=== PATIENT | female | born 1930 | race Caucasian/White ===

== ENCOUNTER 2016-07-22 17:44 | Inpatient (IN) | payer MEDICARE, BC ==
[2016-07-22] MEDS ORDERED: ASPIRIN 81 MG CHEW PO STA (18:18)
[2016-07-22] MEDS ORDERED: HEPARIN SODIUM,PORCINE 5,000 UNIT/ML 1 ML VIAL IV STA (18:18)
[2016-07-22] MEDS ORDERED: NITROGLYCERIN OINT 1 INCH/GM PACKET TOPICAL STA (18:20)
[2016-07-22] MEDS ORDERED: FUROSEMIDE 10 MG/ML 4 ML VIAL IV STA (18:20)
[2016-07-22] MEDS ORDERED: DILTIAZEM 125 MG in SODIUM CHLORIDE 0.9% 100 ML IV STA (18:27)
--- NOTE | 2016-07-22 18:29 | ED ---
Arrhythmia/Palpitations HPI - General Chief Complaint: Arrhythmia/Palpitations Stated Complaint: AFIB, SOB Time Seen by Provider: 07/22/16 18:16 Source: patient, RN notes reviewed Mode of arrival: wheelchair Limitations: no limitations - History of Present Illness Initial Comments: This is a 85-year-old female with a history of atrial fibrillation in the past who is had ablation and conversion who states she had the onset 4 days ago of some palpitations and exertional dyspnea and fatigue additionally she's had some indigestion-like discomfort and chest heaviness. She was seen at her certified alcohol counselor today and found to be in atrial fibrillation. She does also states she's had swelling to both lower extremities which is unusual for her. She does states his heaviness is about 8/10 in severity. She denies any fevers chills sweats no nausea vomiting or other symptoms. MD Complaint: rapid heart beat, "heart racing", palpitations, irregular heart beat - Related Data Home Medications Medication Instructions Recorded Confirmed Apixaban [Eliquis] 2.5 mg PO BID 02/24/16 07/22/16 Furosemide [Lasix] 40 mg PO DAILY 02/24/16 07/22/16 Magnesium Oxide [Mag-Ox] 250 mg PO DAILY 02/24/16 07/22/16 Metoprolol Tartrate [Lopressor] 25 mg PO BID 02/24/16 07/22/16 Omeprazole 20 mg PO DAILY PRN 02/24/16 07/22/16 Spironolactone [Aldactone] 12.5 mg PO DAILY 02/24/16 07/22/16 Allergies Allergy/AdvReac Type Severity Reaction Status Date / Time latex Allergy TURNS RED, Verified 07/22/16 19:27 OCC HIVES Sulfa (Sulfonamide Allergy Rash/Hives Verified 07/22/16 19:27 Antibiotics) Review of Systems ROS Statement: Those systems with pertinent positive or pertinent negative responses have been documented in the HPI. ROS Other: All systems not noted in ROS Statement are negative. Past Medical History Past Medical History: Atrial Fibrillation, Heart Failure, Rheumatoid Arthritis ( RA) Additional Past Medical History / Comment(s): osteoporosis History of Any Multi-Drug Resistant Organisms: None Reported Past Surgical History: Hysterectomy, Orthopedic Surgery Additional Past Surgical History / Comment(s): shoulder knee cardioversion Past Psychological History: No Psychological Hx Reported Smoking Status: Never smoker Past Alcohol Use History: None Reported Past Drug Use History: None Reported General Exam - General Exam Comments Initial Comments: This is a well-developed well-nourished awake alert oriented 3 female Limitations: no limitations General appearance: alert, in no apparent distress Head exam: Present: atraumatic, normocephalic, normal inspection Eye exam: Present: normal appearance, PERRL, EOMI. Absent: scleral icterus, conjunctival injection, periorbital swelling ENT exam: Present: normal exam, mucous membranes moist Neck exam: Present: normal inspection. Absent: tenderness, meningismus, lymphadenopathy Respiratory exam: Present: rales, decreased breath sounds. Absent: respiratory distress, wheezes, rhonchi, stridor Cardiovascular Exam: Present: tachycardia, irregular rhythm. Absent: systolic murmur, diastolic murmur, rubs, gallop, clicks GI/Abdominal exam: Present: soft, normal bowel sounds. Absent: distended, tenderness, guarding, rebound, rigid Extremities exam: Present: full ROM, normal capillary refill, pedal edema ( Pedal edema to the lower extremities up to the knee.). Absent: tenderness, joint swelling, calf tenderness Back exam: Present: normal inspection Neurological exam: Present: alert, oriented X3, CN II-XII intact Psychiatric exam: Present: normal affect, normal mood Skin exam: Present: warm, dry, intact, normal color. Absent: rash Course Vital Signs 07/22/16 07/22/16 17:45 19:07 Temperature 96.7 F L Pulse Rate 144 H 128 H Respiratory 18 18 Rate Blood Pressure 128/84 127/85 O2 Sat by Pulse 98 96 Oximetry - Reevaluation(s) Reevaluation #1: 07/22/16 21:30 Patient does feel somewhat better. EKG Findings - EKG Results: EKG: interpreted by ERMD (Atrial fibrillation with a rapid ventricular response rate 140 QRS of 88 QT/QTC of 320/48 nonspecific anterior changes.) Medical Decision Making - Medical Decision Making Patient's heart rate did respond she is still in atrial fibrillation with rate has improved down to posterior -100 no further chest pains this time she will be admitted with cardiology consultation I did discuss this with the hospitalist. - Lab Data Result diagrams: 07/22/16 18:32 07/22/16 18:32 Lab Results 05/12/2907/22/16 07/22/16 Range/Units 18:32 18:32 18:32 WBC 5.8 (3.8-10.6) k/uL RBC 3.55 L (3.80-5.40) m/uL Hgb 10.5 L (11.4-16.0) gm/dL Hct 32.7 L (34.0-46.0) % MCV 92.1 (80.0-100.0) fL MCH 29.6 (25.0-35.0) pg MCHC 32.2 (31.0-37.0) g/dL RDW 19.4 H (11.5-15.5) % Plt Count 192 (150-450) k/uL Neutrophils % 67 % Lymphocytes % 24 % Monocytes % 6 % Eosinophils % 0 % Basophils % 0 % Neutrophils # 3.9 (1.3-7.7) k/uL Lymphocytes # 1.4 (1.0-4.8) k/uL Monocytes # 0.4 (0-1.0) k/uL Eosinophils # 0.0 (0-0.7) k/uL Basophils # 0.0 (0-0.2) k/uL Hypochromasia Moderate Poikilocytosis Slight Anisocytosis Slight PT (9.0-12.0) sec INR (<1.1) APTT (22.0-30.0) sec Sodium 140 (137-145) mmol/L Potassium 4.3 (3.5-5.1) mmol/L Chloride 105 (98-107) mmol/L Carbon Dioxide 20 L (22-30) mmol/L Anion Gap 15 mmol/L BUN 22 H (7-17) mg/dL Creatinine 1.05 H (0.52-1.04) mg/dL Est GFR (MDRD) Af Amer >60 (>60 ml/min/1.73 sqM) Est GFR (MDRD) Non-Af 50 (>60 ml/min/1.73 sqM) Glucose 110 H (74-99) mg/dL Calcium 9.2 (8.4-10.2) mg/dL Magnesium 2.4 H (1.6-2.3) mg/dL Total Bilirubin 2.2 H (0.2-1.3) mg/dL AST 46 H (14-36) U/L ALT 44 (9-52) U/L Alkaline Phosphatase 75 (38-126) U/L Total Creatine Kinase 41 (30-135) U/L CK-MB (CK-2) 0.7 (0.0-2.4) ng/mL CK-MB (CK-2) Rel Index 1.7 Troponin I <0.012 (0.000-0.034) ng/mL Total Protein 7.3 (6.3-8.2) g/dL Albumin 4.1 (3.5-5.0) g/dL 07/22/16 Range/Units 18:32 WBC (3.8-10.6) k/uL RBC (3.80-5.40) m/uL Hgb (11.4-16.0) gm/dL Hct (34.0-46.0) % MCV (80.0-100.0) fL MCH (25.0-35.0) pg MCHC (31.0-37.0) g/dL RDW (11.5-15.5) % Plt Count (150-450) k/uL Neutrophils % % Lymphocytes % % Monocytes % % Eosinophils % % Basophils % % Neutrophils # (1.3-7.7) k/uL Lymphocytes # (1.0-4.8) k/uL Monocytes # (0-1.0) k/uL Eosinophils # (0-0.7) k/uL Basophils # (0-0.2) k/uL Hypochromasia Poikilocytosis Anisocytosis PT 12.0 (9.0-12.0) sec INR 1.2 (<1.1) APTT 23.5 (22.0-30.0) sec Sodium (137-145) mmol/L Potassium (3.5-5.1) mmol/L Chloride (98-107) mmol/L Carbon Dioxide (22-30) mmol/L Anion Gap mmol/L BUN (7-17) mg/dL Creatinine (0.52-1.04) mg/dL Est GFR (MDRD) Af Amer (>60 ml/min/1.73 sqM) Est GFR (MDRD) Non-Af (>60 ml/min/1.73 sqM) Glucose (74-99) mg/dL Calcium (8.4-10.2) mg/dL Magnesium (1.6-2.3) mg/dL Total Bilirubin (0.2-1.3) mg/dL AST (14-36) U/L ALT (9-52) U/L Alkaline Phosphatase (38-126) U/L Total Creatine Kinase (30-135) U/L CK-MB (CK-2) (0.0-2.4) ng/mL CK-MB (CK-2) Rel Index Troponin I (0.000-0.034) ng/mL Total Protein (6.3-8.2) g/dL Albumin (3.5-5.0) g/dL - Radiology Data Radiology results: report reviewed (I did review the imaging and report no definite evidence of pleural fluid there is cardiomegaly mild pulmonary fibrotic changes no major change from her previous exam.), image reviewed Critical Care Time Critical Care Time: Yes Critical Care Time: 33 minutes of critical care time which includes initial presentation with history physical labs x-rays reevaluation the patient response to therapy. Evaluation of old charting. Discussion with the patient family regarding the findings. Discussion with the hospitalist admission orders and documentation of the above. Disposition Clinical Impression: Rapid atrial fibrillation, Peripheral edema, Renal insufficiency Disposition: ADMITTED IP TO THIS [facility] Condition: Stable Referrals: Jeff Evans MD [Primary Care Provider] - 1-2 days
[2016-07-22] MEDS ORDERED: HEPARIN SODIUM,PORCINE/D5W PMX 25,000 UNIT in DEXTROSE/WATER 1 500ML.BAG IV SCH (18:30)
[2016-07-22 18:42] LABS: Anisocytosis Slight; Basophils % (A) 0 %; CH 29.6; CHCM 32.3; Eosinophils % (A) 0 %; HCT 32.7 % (34.0-46.0); HDW 3.93; HGB 10.5 gm/dL (11.4-16.0); Hypochromasia Moderate; Luc # (Auto) 0.15; Luc % (Auto) 3; Lymphocytes # (A) 1.4 k/uL (1.0-4.8); Lymphocytes % (A) 24 %; MCH 29.6 pg (25.0-35.0); MCHC 32.2 g/dL (31.0-37.0); MCV 92.1 fL (80.0-100.0); Mean Platelet Volume 7.9; Monocytes # (A) 0.4 k/uL (0-1.0); Monocytes % (A) 6 %; Neutrophils # (A) 3.9 k/uL (1.3-7.7); Neutrophils % (A) 67 %; Poikilocytosis Slight; RBC 3.55 m/uL (3.80-5.40); RDW 19.4 % (11.5-15.5); WBC 5.8 k/uL (3.8-10.6); WBC (Perox) 6.03
[2016-07-22 18:58] LABS: INR 1.2 (<1.1); Partial Thromboplastin Time 23.5 sec (22.0-30.0)
[2016-07-22 19:01] LABS: ALT 44 U/L (9-52); AST 46 U/L (14-36); Alkaline Phosphatase 75 U/L (38-126); Anion Gap 15 mmol/L; Blood Urea Nitrogen 22 mg/dL (7-17); Calcium 9.2 mg/dL (8.4-10.2); Carbon Dioxide 20 mmol/L (22-30); Chloride 105 mmol/L (98-107); Glucose 110 mg/dL (74-99); Magnesium 2.4 mg/dL (1.6-2.3); Non-African American GFR(MDRD) 50 (>60 ml/min/1.73 sqM); Potassium 4.3 mmol/L (3.5-5.1); Sodium 140 mmol/L (137-145); Total Bilirubin 2.2 mg/dL (0.2-1.3); Total Protein 7.3 g/dL (6.3-8.2)
[2016-07-22 19:03] LABS: Creatine Kinase 41 U/L (30-135)
[2016-07-22 19:17] LABS: Creatine Kinase MB 0.7 ng/mL (0.0-2.4); Troponin I <0.012 ng/mL (0.000-0.034)
--- NOTE | 2016-07-22 19:35 | XR ---
EXAMINATION TYPE: XR chest 2V DATE OF EXAM: 07/22/2016 7:18 PM COMPARISON: 07/23/2012 HISTORY: Dysrhythmia TECHNIQUE: Frontal and lateral views of the chest are obtained. FINDINGS: Heart is enlarged. There is no gross heart failure. Lungs are clear of consolidation. Ther e is some coarsening of interstitial markings. There are chest leads. IMPRESSION: Cardiomegaly. Mild pulmonary fibrotic changes. No significant change compared to old exa m.
[2016-07-22] MEDS ORDERED: NALOXONE 0.4 MG/ML 1 ML VIAL IV PRN (21:35)
[2016-07-22] MEDS ORDERED: PANTOPRAZOLE 40 MG TABLET PO PRN (21:45)
[2016-07-22] MEDS ORDERED: TEMAZEPAM 15 MG CAP PO PRN (23:17)
[2016-07-22] MEDS ORDERED: ALPRAZolam 0.25 MG TAB PO PRN (23:17)
[2016-07-22] MEDS ORDERED: HYDROcodone/APAP 5-325MG 1 EACH TAB PO PRN (23:17)
[2016-07-23 01:22] VITALS: BMI 25.5
[2016-07-23] MEDS: NITROGLYCERIN OINT 1 INCH/GM PACKET TOPICAL SCH ×5 (02:51→17:21)
[2016-07-23] MEDS: SODIUM CHLORIDE 0.9% 1,000 ML IV SCH ×2 (05:52→22:02)
[2016-07-23 05:58] LABS: Anisocytosis Slight; Basophils % (A) 0 %; CH 28.7; CHCM 31.4; Eosinophils % (A) 0 %; HCT 28.6 % (34.0-46.0); HDW 3.75; Hypochromasia Moderate; Luc # (Auto) 0.21; Luc % (Auto) 4; Lymphocytes # (A) 1.8 k/uL (1.0-4.8); Lymphocytes % (A) 35 %; MCH 28.5 pg (25.0-35.0); MCHC 31.1 g/dL (31.0-37.0); MCV 91.6 fL (80.0-100.0); Mean Platelet Volume 7.5; Monocytes # (A) 0.7 k/uL (0-1.0); Monocytes % (A) 13 %; Neutrophils # (A) 2.4 k/uL (1.3-7.7); Neutrophils % (A) 48 %; Poikilocytosis Slight; RBC 3.13 m/uL (3.80-5.40); RDW 19.3 % (11.5-15.5); WBC 5.1 k/uL (3.8-10.6); WBC (Perox) 5.42
[2016-07-23 06:07] LABS: Anion Gap 9 mmol/L; Blood Urea Nitrogen 21 mg/dL (7-17); Calcium 8.4 mg/dL (8.4-10.2); Carbon Dioxide 22 mmol/L (22-30); Chloride 109 mmol/L (98-107); Glucose 83 mg/dL (74-99); Non-African American GFR(MDRD) 59 (>60 ml/min/1.73 sqM); Potassium 3.6 mmol/L (3.5-5.1); Sodium 140 mmol/L (137-145)
[2016-07-23 06:11] LABS: HGB 8.9 gm/dL (11.4-16.0)
--- NOTE | 2016-07-23 08:34 | HP ---
DATE OF ADMISSION: CHIEF COMPLAINT: Atrial fibrillation. HISTORY OF PRESENT ILLNESS: This 85-year-old woman with a past medical history of atrial fibrillation, CHF, rheumatoid arthritis, history of osteoporosis, hysterectomy being followed by Dr. Jeff Evans in the outpatient setting has apparently had a right shoulder arthroplasty in February by Dr. Shin. The patient today had an appointment with a radial drill press operator for plastic and the patient's heart rate was high and recommended admission at [facility]. The patient's barber tool sharpener is Dr. Harjit Rodas. Patient came to [facility] and admitted for further evaluation and treatment. The patient was found to have atrial fibrillation with fast ventricular rate on admission at 144. Cardizem was initiated and the heart rate is being closely monitored as this time. There is no history of any fever, rigors, chills. No history of headache, loss of consciousness or seizures at this time. The patient also complaining of generalized bloating and some shortness of breath also. PAST MEDICAL HISTORY: History of atrial fibrillation, history of CHF, history of rheumatoid arthritis, osteoporosis. Medications prior to admission include: 1. Aldactone 12.5 mg daily. 2. Omeprazole 20 mg daily p.r.n. 3. Lopressor 25 mg b.i.d. 4. Magnesium oxide 250 mg p.o. daily. 5. Lasix 40 mg p.o. daily. 6. Eliquis 2.5 mg b.i.d. Allergies are LATEX, SULFA. FAMILY HISTORY: No history of heart disease or strokes in the family. SOCIAL HISTORY: No history of smoking. Occasional alcohol intake. REVIEW OF SYSTEMS: ENT: Diminished hearing and diminished vision. Patient wears hearing aids. CARDIOVASCULAR: As mentioned earlier. RESPIRATORY: As mentioned earlier. GI: No nausea. : No dysuria. NERVOUS SYSTEM: No numbness or weakness. ALLERGY/IMMUNOLOGY: No asthma or hayfever. MUSCULOSKELETAL: As mentioned earlier. HEMATOLOGY/ONCOLOGY: No history of anemia. ENDOCRINE: No history of diabetes mellitus or hypothyroidism. CONSTITUTIONAL: As mentioned earlier. DERMATOLOGY: Negative. RHEUMATOLOGY: As mentioned earlier. PSYCHIATRY: As mentioned earlier. PHYSICAL EXAMINATION: The patient is alert and oriented x3. Pulse 144, blood pressure 128/84, respirations 18. Pulse is irregularly, irregular. Temperature is 96.7. Pulse ox is 98% on room air. HEENT: Conjunctivae normal. Oral mucosa moist. NECK: jugular venous distention. CARDIOVASCULAR: S1 and S2, irregular and tachycardiac. Also an ejection systolic murmur. RESPIRATORY: Breath sounds diminished at the bases. A few scattered rhonchi, no crackles. ABDOMEN: Soft, nontender. No mass palpable. LEGS: Minimal bilateral leg edema. NERVOUS SYSTEM: Higher function as mentioned earlier. Moves all 4 limbs. No focal motor or sensory deficits. LYMPHATICS: No lymphadenopathy of neck, axillae or groin. SKIN: No ulcer, rash, bleeding. LABS: WBC 5.8, hemoglobin is 10.5. Sodium 140, potassium 4.3, creatinine is 1.05. Magnesium 2.4. Total bilirubin is 2.2, AST is 46. Chest x-ray, which I reviewed personally, showed increased vascularity and maybe mild CHF and possibly pulmonary fibrotic changes as well. The EKG shows atrial fibrillation with fast ventricular rate and ST-T changes. ASSESSMENT: 1. Atrial fibrillation with fast ventricular rate. 2. Congestive heart failure acute exacerbation. 3. History of rheumatoid arthritis. 4. History of osteoporosis. 5. History of hysterectomy. 6. History of orthopedic surgery and right shoulder arthroplasty. 7. FULL CODE. RECOMMENDATIONS AND DISCUSSION: This 85-year-old woman who presented with multiple complex medical issues, will monitor the patient closely. Continue the current medications. Continue symptomatic treatment. Otherwise, continue with Cardizem, adjust medications. We will check BNP and as well as TSH also. Closely monitored. Resume the home medications. Further recommendations to follow. A copy of dictation forwarded to Dr. Jeff Evans who is the primary physician. NUVIA
[2016-07-23] MEDS: SPIRONOLACTONE 25 MG TAB PO SCH (08:53)
[2016-07-23] MEDS: MAGNESIUM OXIDE 400 MG TAB PO SCH (08:53)
[2016-07-23] MEDS: FUROSEMIDE 10 MG/ML 4 ML VIAL IV SCH ×2 (08:54→22:11)
[2016-07-23] MEDS: APIXABAN 2.5 MG TABLET PO SCH ×2 (08:54→22:02)
[2016-07-23] MEDS: METOPROLOL TARTRATE 25 MG TAB PO SCH ×2 (08:54→22:02)
[2016-07-23] MEDS ORDERED: FUROSEMIDE 40 MG TAB PO SCH (09:00)
[2016-07-23 11:22] LABS: ALT 44 U/L (9-52); AST 33 U/L (14-36); Alkaline Phosphatase 59 U/L (38-126); Total Bilirubin 1.7 mg/dL (0.2-1.3); Total Protein 5.9 g/dL (6.3-8.2)
--- NOTE | 2016-07-23 12:08 | ECHOF ---
Referral Reason:chf MEASUREMENTS -------- HEIGHT: 167.6 cm WEIGHT: 72.6 kg BP: 101/53 RVIDd: 3.2 cm (< 3.3) IVSd: 1.0 cm (0.6 - 1.1) LVIDd: 4.4 cm (3.9 - 5.3) LVPWd: 1.0 cm (0.6 - 1.1) IVSs: 1.4 cm LVIDs: 3.2 cm LVPWs: 1.4 cm LAESV Index (A-L): 23.25 ml/m Ao Diam: 3.2 cm (2.0 - 3.7) AV Cusp: 1.8 cm (1.5 - 2.6) LA Diam: 4.4 cm (2.7 - 3.8) MV EXCURSION: 17.332 mm (> 18.000) MV EF SLOPE: 111 mm/s (70 - 150) EPSS: 0.7 cm MV E Castro: 1.13 m/s MV DecT: 280 ms MV A Castro: 1.26 m/s MV E/A Ratio: 0.90 RAP: 5.00 mmHg RVSP: 36.04 mmHg FINDINGS -------- Atrial fibrillation. This was a technically adequate study. Left ventricular wall thickness is normal. Overall left ventricular systolic function is low-normal with, an EF between 50 - 55 %. The right ventricle is normal in size and function. Normal LA size by volume 22+/-6 ml/m2. RA appears enlarged. Aortic valve is trileaflet and is mildly thickened. There is no evidence of aortic regurgitation. There is no evidence of aortic stenosis. Mild mitral annular calcification present. There is trace mitral regurgitation. [id number] tricuspid regurgitation present. There is no evidence of pulmonary hypertension. The right ventricular systolic pressure, as measured by Doppler, is 36.04mmHg. The pulmonic valve was not well visualized. The aortic root size is normal. There is no pericardial effusion. CONCLUSIONS -------- 1. Atrial fibrillation. 2. The pulmonic valve was not well visualized. 3. The aortic root size is normal. 4. There is no pericardial effusion. 5. Normal LA size by volume 22+/-6 ml/m2. 6. RA appears enlarged. 7. Aortic valve is trileaflet and is mildly thickened. 8. Mild mitral annular calcification present. 9. There is trace mitral regurgitation. 10. [id number] tricuspid regurgitation present. 11. There is no evidence of pulmonary hypertension. 12. The right ventricular systolic pressure, as measured by Doppler, is 36.04mmHg. FLASH RANGING CREWMEMBER: Navneet Elizabeth RDCS
--- NOTE | 2016-07-23 14:36 | P.CRDCN ---
History of Present Illness Consult date: 07/23/16 Requesting physician: Papo Ley Consult reason: atrial fibrillation History of present illness: This is a pleasant 67-year-old female patient who sees Dr. TIA Rodas as an outpatient with a past medical history significant for paroxysmal nature fibrillation was extended to the hospital by her cigar packer and grader because fast heart rate. Beside that the patient has been experiencing progressive exertional dyspnea and orthopnea and also progressive bilateral lower extremities edema. She gained significant amount of weight over the last several weeks. She denies having any chest pain or discomfort. In the ER the patient was found to be in A. fib with RVR and she was started on Cardizem and drip. She was on oral anticoagulation which we will continue. She underwent an echocardiogram which showed normal LV function without any significant valvular abnormalities. We will continue the Cardizem IV. The patient is on metoprolol by mouth and would increase the dose to control the heart rate and wean her from the Cardizem IV. She is on anticoagulation would continue that. I am going to DC the Lasix by mouth on start the patient on Lasix IV. Clinically the patient is in overt congestive heart failure. Past Medical History Past Medical History: Atrial Fibrillation, Heart Failure, Osteoarthritis (OA), Rheumatoid Arthritis (RA) Additional Past Medical History / Comment(s): osteoporosis History of Any Multi-Drug Resistant Organisms: None Reported Past Surgical History: Hysterectomy, Orthopedic Surgery Additional Past Surgical History / Comment(s): right shoulder sx, right knee arthroscopy, cardioversion Past Anesthesia/Blood Transfusion Reactions: No Reported Reaction Past Psychological History: No Psychological Hx Reported Smoking Status: Never smoker Past Alcohol Use History: None Reported Past Drug Use History: None Reported - Past Family History Mother Family Medical History: Cancer Additional Family Medical History / Comment(s): stomach CA Brother(s) Family Medical History: Diabetes Mellitus Medications and Allergies Home Medications Medication Instructions Recorded Confirmed Type Apixaban [Eliquis] 2.5 mg PO BID 02/24/16 07/22/16 History Furosemide [Lasix] 40 mg PO DAILY 02/24/16 07/22/16 History Magnesium Oxide [Mag-Ox] 250 mg PO DAILY 02/24/16 07/22/16 History Metoprolol Tartrate [Lopressor] 25 mg PO BID 02/24/16 07/22/16 History Omeprazole 20 mg PO DAILY PRN 02/24/16 07/22/16 History Spironolactone [Aldactone] 12.5 mg PO DAILY 02/24/16 07/22/16 History Allergies Allergy/AdvReac Type Severity Reaction Status Date / Time latex Allergy TURNS RED, Verified 07/22/16 19:27 OCC HIVES Sulfa (Sulfonamide Allergy Rash/Hives Verified 07/22/16 19:27 Antibiotics) Physical Exam Vitals: Vital Signs Temp Pulse Pulse Resp BP BP Pulse Ox 07/23/16 12:00 98.3 F 101 H 16 112/67 07/23/16 08:00 97.0 F L 117 H 20 116/67 98 07/23/16 04:00 98.1 F 104 H 18 101/53 95 07/23/16 01:06 97.2 F L 97 18 136/78 100 07/23/16 01:00 97 07/23/16 00:00 92 20 102/74 07/22/16 23:00 102 H 139/75 97 07/22/16 22:00 108 H 123/85 100 Intake and Output 07/22/16 07/23/16 07/23/16 22:59 06:59 14:59 Intake Total 500 345 Output Total 475 Balance 500 -130 Intake: IV 200 Diltiazem 125 mg In 40 Sodium Chloride 0.9% 100 ml @ 5 MG/HR 5 mls/hr IV .Q24H STA Rx#:[id number] Sodium Chloride 0.9% 1, 160 000 ml @ 20 mls/hr IV . Q24H CONSTANTINO Rx#:[id number] Oral 300 345 Output: Urine 475 Other: Voiding Method Toilet Toilet # Voids 0 1 Weight 72.9 kg 72.9 kg Patient Weight 07/24/16 06:59 Weight 72.9 kg - Constitutional General appearance: no acute distress - Respiratory Respiratory: bilateral: rales - Cardiovascular Rhythm: irregularly irregular Heart sounds: normal: S1, S2 Results 07/23/16 05:30 07/23/16 05:30 Cardiac Enzymes 07/23/16 Range/Units 05:30 AST 33 (14-36) U/L CBC 07/23/16 Range/Units 05:30 WBC 5.1 (3.8-10.6) k/uL RBC 3.13 L (3.80-5.40) m/uL Hgb 8.9 L D (11.4-16.0) gm/dL Hct 28.6 L (34.0-46.0) % Plt Count 156 (150-450) k/uL Comprehensive Metabolic Panel 07/23/16 Range/Units 05:30 Sodium 140 (137-145) mmol/L Potassium 3.6 (3.5-5.1) mmol/L Chloride 109 H (98-107) mmol/L Carbon Dioxide 22 (22-30) mmol/L BUN 21 H (7-17) mg/dL Creatinine 0.90 (0.52-1.04) mg/dL Glucose 83 (74-99) mg/dL Calcium 8.4 (8.4-10.2) mg/dL AST 33 (14-36) U/L ALT 44 (9-52) U/L Alkaline Phosphatase 59 (38-126) U/L Total Protein 5.9 L (6.3-8.2) g/dL Albumin 3.3 L (3.5-5.0) g/dL Current Medications Generic Name Dose Route Start Last Admin Trade Name Freq PRN Reason Stop Dose Admin Hydrocodone Bitart/Acetaminophen 1 each 07/22/16 23:17 Dougherty 5-325 PO Q6HR PRN Pain Alprazolam 0.25 mg 07/22/16 23:17 Xanax PO TID PRN Anxiety Apixaban 2.5 mg 07/23/16 09:00 07/23/16 08:54 Eliquis PO 2.5 mg BID CONSTANTINO Administration Furosemide 40 mg 07/23/16 09:00 07/23/16 08:54 Lasix IV 40 mg Q12HR CONSTANTINO Administration Diltiazem HCl 125 mg/ Sodium 125 mls @ 5 mls/hr 07/22/16 18:27 07/22/16 19:03 Chloride IV 07/23/16 18:26 5 mg/hr .Q24H STA 5 mls/hr Protocol Administration 5 MG/HR Sodium Chloride 1,000 mls @ 20 mls/hr 07/22/16 21:45 07/23/16 05:52 Saline 0.9% IV 20 mls/hr .Q24H CONSTANTINO Administration Magnesium Oxide 400 mg 07/23/16 09:00 07/23/16 08:53 Mag-Ox PO 400 mg DAILY CONSTANTINO Administration Metoprolol Tartrate 25 mg 07/23/16 09:00 07/23/16 08:54 Lopressor PO 25 mg BID CONSTANTINO Administration Naloxone HCl 0.2 mg 07/22/16 21:35 Narcan IV Q2M PRN Opioid Reversal Nitroglycerin 1 inch 07/23/16 00:00 07/23/16 12:03 Nitro-Bid Oint TOPICAL Not Given Q6HR CONSTANTINO Pantoprazole Sodium 40 mg 07/22/16 21:45 Protonix PO DAILY PRN GERD Spironolactone 12.5 mg 07/23/16 09:00 07/23/16 08:53 Aldactone PO 12.5 mg DAILY CONSTANTINO Administration Temazepam 15 mg 07/22/16 23:17 Restoril PO HS PRN Insomnia Intake and Output 07/22/16 07/23/16 07/23/16 22:59 06:59 14:59 Intake Total 500 345 Output Total 475 Balance 500 -130 Intake: IV 200 Diltiazem 125 mg In 40 Sodium Chloride 0.9% 100 ml @ 5 MG/HR 5 mls/hr IV .Q24H STA Rx#:[id number] Sodium Chloride 0.9% 1, 160 000 ml @ 20 mls/hr IV . Q24H CONSTANTINO Rx#:[id number] Oral 300 345 Output: Urine 475 Other: Voiding Method Toilet Toilet # Voids 0 1 Weight 72.9 kg 72.9 kg Patient Weight 07/24/16 06:59 Weight 72.9 kg 07/23/16 05:30 07/23/16 05:30 Assessment and Plan Plan: Assessment and Plan Plan: Assessment #1 atrial fibrillation with rapid ventricular response #2 congestive heart failure exacerbation secondary to diastole dysfunction Plan #1 DC the Lasix by mouth and start the patient on Lasix IV #2 try to wean her from the Cardizem IV #3 she underwent an echo which showed normal LV function #4 we'll continue following up with her
--- NOTE | 2016-07-23 17:03 | P.PN ---
Subjective Date of service 07/23/2016. Progress note being dictated for Dr. Ley. Interval history: This is an 85-year-old female admitted with atrial fibrillation with RVR, acute CHF exacerbation and multiple other medical issues. Evaluated by cardiology with recommendations noted. Maintained on Cardizem drip, metoprolol currently in atrial fibrillation with controlled ventricular rhythm. Anticoagulated on Eliquis.Diuresing on Lasix IV push, shortness of breath improving. Echo reporting mild to moderate tricuspid regurgitation, EF 50-55%. Positive diet intake with no nausea vomiting. Denies chest pain, palpitations. Objective - Vital Signs Vital signs: Vital Signs Temp 98.0 F 07/23/16 15:44 Pulse 94 07/23/16 15:46 Resp 14 07/23/16 15:46 BP 115/75 07/23/16 15:44 Pulse Ox 97 07/23/16 15:44 Intake & Output 07/22/16 07/23/16 07/23/16 18:59 06:59 18:59 Intake Total 500 345 Output Total 875 Balance 500 -530 Weight 72.9 kg 72.9 kg Intake: IV 200 Diltiazem 125 mg In 40 Sodium Chloride 0.9% 100 ml @ 5 MG/HR 5 mls/hr IV .Q24H STA Rx#:[id number] Sodium Chloride 0.9% 1, 160 000 ml @ 20 mls/hr IV . Q24H CONSTANTINO Rx#:[id number] Oral 300 345 Output: Urine 875 Other: Voiding Method Toilet Toilet # Voids 0 1 - Exam PHYSICAL EXAM: VITAL SIGNS: As above GENERAL: [Sitting up in bed, eating lunch, no acute distress] HEENT: [Pupils equal conjunctiva normal. No conjunctival pallor] NECK: [Supple, no JVD] RESPIRATORY EFFORT:[ Mildly increased] LUNGS: [Diminished with scattered rhonchi, fine bibasilar crackles, no wheezes] CARDIOVASCULAR[ irregular, positive systolic murmur, positive edema] GI: [Abdomen soft, nontender, positive bowel sounds.] PSYCH: [Alert and oriented -3, mood and affect normal.] NEURO: [No focal deficits, moves all 4 extremities, strength and sensation grossly intact] - Labs CBC & Chem 7: 07/23/16 05:30 07/23/16 05:30 Labs: Abnormal Lab Results - Last 24 Hours (Table) 07/23/16 07/23/16 Range/Units 05:30 05:30 RBC 3.13 L (3.80-5.40) m/uL Hgb 8.9 L D (11.4-16.0) gm/dL Hct 28.6 L (34.0-46.0) % RDW 19.3 H (11.5-15.5) % Chloride 109 H (98-107) mmol/L BUN 21 H (7-17) mg/dL Total Bilirubin 1.7 H (0.2-1.3) mg/dL Total Protein 5.9 L (6.3-8.2) g/dL Albumin 3.3 L (3.5-5.0) g/dL Assessment and Plan Plan: 1. Atrial fibrillation with RVR 2. [ Acute exacerbation of CHF, diastolic dysfunction, EF 50-55%]. 3. [ Rheumatoid arthritis]. Plan: Continue on current medication regime , Lasix, Cardizem, beta linda , monitoring and symptomatic treatment. Close monitoring of electrolytes with repeat labs ordered for a.m. Cardiziem weaning in progress as per cardiology.Further Recommendations to follow. The impression and plan of care has been dictated as directed. : I performed a H&P examination of this patient and discussed the same with the dictator. I agree with the dictator's note. Any additional findings/opinions/ etc. will be noted.
[2016-07-23] MEDS ORDERED: DILTIAZEM 125 MG in SODIUM CHLORIDE 0.9% 100 ML IV SCH (17:30)
--- NOTE | 2016-07-23 21:21 | PN ---
DATE OF SERVICE: 07/23/2016 This 67-year-old woman was admitted with atrial fibrillation with fast ventricular rate, is being closely monitored. I have seen and evaluated the patient with the nurse practitioner. Please refer to the nurse practitioner's notes and impressions documented as scribe for further information. Prognosis guarded. Further recommendations to follow.
[2016-07-24] MEDS: NITROGLYCERIN OINT 1 INCH/GM PACKET TOPICAL SCH ×3 (05:18→12:43)
[2016-07-24 06:31] LABS: ALT 38 U/L (9-52); AST 27 U/L (14-36); Alkaline Phosphatase 62 U/L (38-126); Anion Gap 11 mmol/L; Blood Urea Nitrogen 21 mg/dL (7-17); Calcium 8.7 mg/dL (8.4-10.2); Carbon Dioxide 22 mmol/L (22-30); Chloride 108 mmol/L (98-107); Glucose 97 mg/dL (74-99); Non-African American GFR(MDRD) 58 (>60 ml/min/1.73 sqM); Potassium 3.6 mmol/L (3.5-5.1); Sodium 141 mmol/L (137-145); Total Bilirubin 1.4 mg/dL (0.2-1.3); Total Protein 6.3 g/dL (6.3-8.2)
[2016-07-24 06:33] LABS: Anisocytosis Slight; Basophils % (A) 0 %; CH 28.7; Eosinophils % (A) 0 %; HCT 29.9 % (34.0-46.0); HDW 3.69; HGB 9.4 gm/dL (11.4-16.0); Hypochromasia Marked; Luc # (Auto) 0.21; Luc % (Auto) 4; Lymphocytes # (A) 1.5 k/uL (1.0-4.8); Lymphocytes % (A) 29 %; MCH 29.3 pg (25.0-35.0); MCHC 31.5 g/dL (31.0-37.0); MCV 93.2 fL (80.0-100.0); Macrocytosis Slight; Mean Platelet Volume 7.2; Monocytes # (A) 0.8 k/uL (0-1.0); Monocytes % (A) 15 %; Neutrophils # (A) 2.7 k/uL (1.3-7.7); Neutrophils % (A) 52 %; Poikilocytosis Slight; RDW 19.2 % (11.5-15.5); WBC 5.3 k/uL (3.8-10.6); WBC (Perox) 5.45
[2016-07-24] MEDS: APIXABAN 2.5 MG TABLET PO SCH ×2 (09:07→20:18)
[2016-07-24] MEDS: MAGNESIUM OXIDE 400 MG TAB PO SCH (09:07)
[2016-07-24] MEDS: METOPROLOL TARTRATE 25 MG TAB PO SCH ×3 (09:07→20:18)
[2016-07-24] MEDS: SPIRONOLACTONE 25 MG TAB PO SCH (09:08)
[2016-07-24] MEDS: FUROSEMIDE 10 MG/ML 4 ML VIAL IV SCH ×2 (09:09→20:18)
--- NOTE | 2016-07-24 15:17 | P.PN ---
Subjective Principal diagnosis: Congestive heart failure and atrial fibrillation 85-year-old female who follows regularly with Dr. Cecile Rodas in the office. She has a history of paroxysmal atrial fibrillation. She presented to the hospital with symptoms of exertional dyspnea as well as a positive orthopnea bilateral peripheral edema. She had gained a significant amount of weight prior to coming to the hospital. She was seen in consultation yesterday and initiated on IV Lasix therapy. She has been diuresing on IV Lasix. Feeling significantly better today. Hemoglobin 9.4, potassium 3.6, BUN 21, creatinine 0.9, total bilirubin 1.4. TSH 1.86. She continues to be in atrial fibrillation with a heart rate of 90, asymptomatic.pressure 124/60. 96% on room air . Patient still has some mild peripheral edema. We will continue IV Lasix for 24 hours. A cardiogram with Doppler study was performed which revealed an ejection fraction of 50-55%, mild to moderate tricuspid regurg. Objective - Vital Signs Vital signs: Vital Signs Temp 97.5 F L 07/24/16 08:00 Pulse 99 07/24/16 08:00 Resp 18 07/24/16 08:00 BP 124/62 07/24/16 08:00 Pulse Ox 97 07/23/16 15:44 Intake & Output 07/23/16 07/24/16 07/24/16 18:59 06:59 18:59 Intake Total 345 200 Output Total 875 2700 Balance -530 -2500 Weight 72.9 kg 73.7 kg Intake: IV 200 Diltiazem 125 mg In 40 Sodium Chloride 0.9% 100 ml @ 5 MG/HR 5 mls/hr IV .Q24H [facility] Rx#:[id number] Sodium Chloride 0.9% 1, 160 000 ml @ 20 mls/hr IV . Q24H [facility] Rx#:[id number] Oral 345 Output: Urine 875 2700 Other: Voiding Method Toilet Toilet # Voids 1 - Exam PHYSICAL EXAMINATION: HEENT: Head is atraumatic, normocephalic. Pupils equal, round. Neck is supple. There is no elevated jugular venous pressure. HEART EXAMINATION: Heart S1, S2 irregularly irregular . No murmur or gallop heard. CHEST EXAMINATION: Lungs are clear to auscultation and precussion. No chest wall tenderness is noted on palpation or with deep breathing. ABDOMEN: Soft, nontender. Bowel sounds are heard. No organomegaly noted. EXTREMITIES: 2+ peripheral pulses with trace evidence of peripheral edema and no calf tenderness noted. NEUROLOGIC patient is awake, alert and oriented -3. . - Labs CBC & Chem 7: 07/24/16 05:29 07/24/16 05:29 Labs: Abnormal Lab Results - Last 24 Hours (Table) 07/24/16 07/24/16 Range/Units 05:29 05:29 RBC 3.20 L (3.80-5.40) m/uL Hgb 9.4 L (11.4-16.0) gm/dL Hct 29.9 L (34.0-46.0) % RDW 19.2 H (11.5-15.5) % Chloride 108 H (98-107) mmol/L BUN 21 H (7-17) mg/dL Total Bilirubin 1.4 H (0.2-1.3) mg/dL Assessment and Plan Plan: Assessment and Plan Plan: Assessment #1 atrial fibrillation with rapid ventricular response #2 congestive heart failure exacerbation secondary to diastole dysfunction Plan Continue current dose of IV Lasix. Monitor intake and output along with daily weights. DNP note has been reviewed, I agree with a documented findings and plan of care. Patient was seen and examined.
--- NOTE | 2016-07-24 15:37 | P.PN ---
Subjective Date of service 07/24/2016. Progress note being dictated for Dr. Ley. Interval history: This is an 85-year-old female admitted with atrial fibrillation with RVR, acute CHF exacerbation and multiple other medical issues. Cardizem drip weaning in progress with metoprolol dose increased . Remains in atrial fibrillation with controlled ventricular rhythm. Diuresing well on Lasix IV push, with 24-hour I&O reflecting a negative fluid balance. Denies chest pain, palpitations. Objective - Vital Signs Vital signs: Vital Signs Temp 98.2 F 07/24/16 04:00 Pulse 95 07/24/16 04:00 Resp 18 07/24/16 04:00 BP 106/70 07/24/16 04:00 Pulse Ox 97 07/23/16 15:44 Intake & Output 07/23/16 07/24/16 07/24/16 18:59 06:59 18:59 Intake Total 345 200 Output Total 875 2700 Balance -530 -2500 Weight 72.9 kg 73.7 kg Intake: IV 200 Diltiazem 125 mg In 40 Sodium Chloride 0.9% 100 ml @ 5 MG/HR 5 mls/hr IV .Q24H [facility] Rx#:[id number] Sodium Chloride 0.9% 1, 160 000 ml @ 20 mls/hr IV . Q24H [facility] Rx#:[id number] Oral 345 Output: Urine 875 2700 Other: Voiding Method Toilet Toilet # Voids 1 - Exam PHYSICAL EXAM: VITAL SIGNS: As above GENERAL: [Sitting up in bed, no acute distress] HEENT: [Pupils equal conjunctiva normal. No conjunctival pallor] NECK: [Supple, no JVD] RESPIRATORY EFFORT:[ Mildly increased] LUNGS: [Diminished with scattered rhonchi, no wheezes or crackles CARDIOVASCULAR[ irregular, positive systolic murmur, positive edema] GI: [Abdomen soft, nontender, positive bowel sounds.] PSYCH: [Alert and oriented -3, mood and affect normal.] NEURO: [No focal deficits, moves all 4 extremities, strength and sensation grossly intact] - Labs CBC & Chem 7: 07/24/16 05:29 07/24/16 05:29 Labs: Abnormal Lab Results - Last 24 Hours (Table) 07/23/16 07/24/16 07/24/16 Range/Units 05:30 05:29 05:29 RBC 3.20 L (3.80-5.40) m/uL Hgb 9.4 L (11.4-16.0) gm/dL Hct 29.9 L (34.0-46.0) % RDW 19.2 H (11.5-15.5) % Chloride 109 H 108 H (98-107) mmol/L BUN 21 H 21 H (7-17) mg/dL Total Bilirubin 1.7 H 1.4 H (0.2-1.3) mg/dL Total Protein 5.9 L (6.3-8.2) g/dL Albumin 3.3 L (3.5-5.0) g/dL Assessment and Plan Plan: 1. Atrial fibrillation with RVR 2. [ Acute exacerbation of CHF, diastolic dysfunction, EF 50-55%]. 3. [ Rheumatoid arthritis]. Plan: Continue on current medication regime , Lasix, beta linda ,monitoring and symptomatic treatment. Close monitoring of electrolytes with repeat labs ordered for a.m. discharge planning in progress for potentially tomorrow, pending cardiology clearance. Further Recommendations to follow. The impression and plan of care has been dictated as directed. : I performed a H&P examination of this patient and discussed the same with the dictator. I agree with the dictator's note. Any additional findings/opinions/ etc. will be noted.
[2016-07-25] MEDS: SODIUM CHLORIDE 0.9% 1,000 ML IV SCH ×2 (02:04→19:25)
[2016-07-25 06:20] LABS: Anisocytosis Slight; Basophils % (A) 0 %; CH 29.2; Eosinophils % (A) 0 %; HCT 30.6 % (34.0-46.0); HDW 4.05; HGB 9.8 gm/dL (11.4-16.0); Hypochromasia Moderate; Luc # (Auto) 0.21; Luc % (Auto) 4; Lymphocytes # (A) 1.6 k/uL (1.0-4.8); Lymphocytes % (A) 33 %; MCH 29.3 pg (25.0-35.0); MCV 91.6 fL (80.0-100.0); Mean Platelet Volume 7.5; Monocytes # (A) 0.7 k/uL (0-1.0); Monocytes % (A) 14 %; Neutrophils # (A) 2.4 k/uL (1.3-7.7); Neutrophils % (A) 48 %; Poikilocytosis Moderate; RBC 3.34 m/uL (3.80-5.40); RDW 19.1 % (11.5-15.5); WBC 4.9 k/uL (3.8-10.6)
[2016-07-25 06:40] LABS: ALT 32 U/L (9-52); AST 20 U/L (14-36); Alkaline Phosphatase 63 U/L (38-126); Anion Gap 11 mmol/L; Blood Urea Nitrogen 18 mg/dL (7-17); Calcium 8.8 mg/dL (8.4-10.2); Carbon Dioxide 26 mmol/L (22-30); Chloride 106 mmol/L (98-107); Glucose 92 mg/dL (74-99); Non-African American GFR(MDRD) 56 (>60 ml/min/1.73 sqM); Potassium 3.7 mmol/L (3.5-5.1); Sodium 143 mmol/L (137-145); Total Bilirubin 1.6 mg/dL (0.2-1.3); Total Protein 6.4 g/dL (6.3-8.2)
[2016-07-25] MEDS: MAGNESIUM OXIDE 400 MG TAB PO SCH (09:02)
[2016-07-25] MEDS: APIXABAN 2.5 MG TABLET PO SCH ×2 (09:02→19:24)
[2016-07-25] MEDS: METOPROLOL TARTRATE 25 MG TAB PO SCH ×3 (09:02→19:25)
[2016-07-25] MEDS: predniSONE 10 MG TAB PO SCH (09:02)
[2016-07-25] MEDS: SPIRONOLACTONE 25 MG TAB PO SCH (09:02)
[2016-07-25] MEDS: FUROSEMIDE 10 MG/ML 4 ML VIAL IV SCH ×2 (09:03→19:25)
--- NOTE | 2016-07-25 10:17 | PN ---
DATE OF SERVICE: 07/24/2016 This 85-year-old woman was admitted with afib, is improving at this time. Patient also had rheumatoid arthritis. No chest pain, no palpitations. No fever. Seen and evaluated the patient along with the nurse practitioner. Please refer to the nurse practitioner notes and impression documented for further information. NUVIA
[2016-07-25] MEDS: DILTIAZEM ORAL 60 MG TAB PO SCH ×2 (12:35→19:24)
[2016-07-26 07:00] LABS: Anisocytosis Slight; Aty Lym Flag Slight; CH 29.2; CHCM 32.3; HCT 30.3 % (34.0-46.0); HDW 4.13; HGB 9.9 gm/dL (11.4-16.0); Hypochromasia Moderate; MCH 29.7 pg (25.0-35.0); MCHC 32.8 g/dL (31.0-37.0); MCV 90.6 fL (80.0-100.0); Poikilocytosis Moderate; RBC 3.34 m/uL (3.80-5.40); RDW 18.8 % (11.5-15.5); WBC 4.8 k/uL (3.8-10.6); WBC (Perox) 4.68
[2016-07-26 07:25] LABS: ALT 30 U/L (9-52); AST 16 U/L (14-36); Alkaline Phosphatase 64 U/L (38-126); Anion Gap 11 mmol/L; Blood Urea Nitrogen 18 mg/dL (7-17); Calcium 8.8 mg/dL (8.4-10.2); Carbon Dioxide 25 mmol/L (22-30); Chloride 106 mmol/L (98-107); Glucose 95 mg/dL (74-99); Non-African American GFR(MDRD) 58 (>60 ml/min/1.73 sqM); Potassium 3.8 mmol/L (3.5-5.1); Sodium 142 mmol/L (137-145); Total Bilirubin 1.4 mg/dL (0.2-1.3); Total Protein 6.4 g/dL (6.3-8.2)
[2016-07-26] MEDS: APIXABAN 2.5 MG TABLET PO SCH ×2 (07:40→21:06)
[2016-07-26] MEDS: MAGNESIUM OXIDE 400 MG TAB PO SCH (07:40)
[2016-07-26] MEDS: SPIRONOLACTONE 25 MG TAB PO SCH (07:40)
[2016-07-26] MEDS: predniSONE 10 MG TAB PO SCH (07:40)
[2016-07-26] MEDS: DILTIAZEM ORAL 60 MG TAB PO SCH ×3 (07:40→21:06)
[2016-07-26] MEDS: METOPROLOL TARTRATE 25 MG TAB PO SCH ×3 (07:40→21:06)
[2016-07-26 08:38] LABS: Add Differential Manual Differential
[2016-07-26 08:42] LABS: Band Neutrophils % 0.5 %; Nucleated Red Blood Cells 1 /100 WBC (0-0); Total Cells Counted 200
[2016-07-26 08:43] LABS: Manual Review Performed
--- NOTE | 2016-07-26 09:25 | PN ---
Ms. Song is an 85-year-old female with history of paroxysmal atrial fibrillation with history of previous ablation. Recently patient had a shoulder surgery and had a recurrence of atrial fibrillation and came to the hospital with orthopnea, pedal edema and congestive heart failure. The patient is treated with IV diuretics with improvement of her edema and also symptoms. Heart rate is still fast at times. She is on metoprolol 25 mg p.o. t.i.d. We are going to add Cardizem 60 mg p.o. b.i.d. for better control of heart rate. Her lab work today showed a hemoglobin 9.8, potassium 3.7 creatinine 0.94. Currently she is on Xanax, Eliquis 2.5 mg p.o. b.i.d., diltiazem 60 mg p.o. b.i.d., Lasix 40 mg IV q.12 hours, metoprolol 25 mg p.o. t.i.d. She is also on aldactone 12.5 mg daily. The patient's IV Lasix can be switched to p.o. Lasix. FINAL IMPRESSION: 1. Paroxysmal atrial fibrillation. 2. Preserved LV function. 3. Diastolic acute congestive heart failure. PLAN: Continue diuretic therapy and consider switching IV Lasix to p.o. Lasix. Add diltiazem for better control of the heart rate.
[2016-07-26] MEDS: FUROSEMIDE 10 MG/ML 4 ML VIAL IV SCH ×2 (12:49→21:06)
--- NOTE | 2016-07-26 13:29 | PN ---
DATE OF SERVICE: 07/25/2016 This 85-year-old woman was admitted with atrial fibrillation with rapid ventricular rate has been closely monitored. Patient also has congestive heart failure. No chest pain, no palpitations. No fever. On exam, alert and oriented x3. Pulse 93, blood pressure 108/63, respirations 16, temperature 97.9, pulse ox 90% on room air. HEENT: Conjunctivae normal. NECK: No jugular venous distention. CARDIOVASCULAR: S1 and S2 irregular. RESPIRATORY: Breath sounds diminished at the bases. No rhonchi, no crackles. ABDOMEN: Soft, nontender. LEGS: No edema, no swelling. NERVOUS SYSTEM: No focal deficits. LABS: WBC 4, hemoglobin 9.8. BUN 18. Chest x-ray on admission showed mild pulmonary fibrotic changes. ASSESSMENT: 1. Atrial fibrillation with rapid ventricular rate. 2. Congestive heart failure acute exacerbation, acute on chronic diastolic dysfunction, ejection 50 to 55%. 3. History of rheumatoid arthritis. 4. History of atrial fibrillation. 5. History of degenerative joint disease. 6. History of osteoporosis. 7. History of right shoulder surgery. 8. Anemia, normocytic anemia of chronic disease. 9. Increased creatinine with mild acute renal failure secondary to prerenal factors. 10. Increased total bilirubin. 11. Increased AST, improved. 12. Increased random blood sugar. 13. FULL CODE. RECOMMENDATIONS AND DISCUSSION: In this 85-year-old woman who presented with multiple complex medical issues, will monitor the patient closely. Continue the current medications. Continue symptomatic treatment. Otherwise at this time, I recommend continue with diuretics. Continue the rest of the medications. Patient is on apixaban already. Diltiazem p.o. is started. Prognosis guarded. Further recommendations to follow.
[2016-07-26] MEDS: SODIUM CHLORIDE 0.9% 1,000 ML IV SCH (21:10)
[2016-07-26] MEDS ORDERED: DOCUSATE 100 MG CAP PO PRN (23:41)
[2016-07-27 06:21] LABS: Anisocytosis Slight; Aty Lym Flag Slight; CH 29.3; CHCM 32.3; HCT 31.3 % (34.0-46.0); HDW 4.01; HGB 9.9 gm/dL (11.4-16.0); Hypochromasia Moderate; MCH 28.9 pg (25.0-35.0); MCHC 31.7 g/dL (31.0-37.0); MCV 91.1 fL (80.0-100.0); Mean Platelet Volume 7.5; Poikilocytosis Moderate; RBC 3.44 m/uL (3.80-5.40); RDW 18.7 % (11.5-15.5); WBC (Perox) 4.77
[2016-07-27 06:26] LABS: ALT 29 U/L (9-52); AST 16 U/L (14-36); Alkaline Phosphatase 66 U/L (38-126); Anion Gap 12 mmol/L; Blood Urea Nitrogen 26 mg/dL (7-17); Calcium 9.3 mg/dL (8.4-10.2); Carbon Dioxide 24 mmol/L (22-30); Chloride 105 mmol/L (98-107); Glucose 91 mg/dL (74-99); Non-African American GFR(MDRD) 53 (>60 ml/min/1.73 sqM); Potassium 3.7 mmol/L (3.5-5.1); Sodium 141 mmol/L (137-145); Total Bilirubin 1.2 mg/dL (0.2-1.3); Total Protein 6.5 g/dL (6.3-8.2)
[2016-07-27 06:39] LABS: Add Differential Manual Differential
[2016-07-27 06:42] LABS: Manual Review Performed; Nucleated Red Blood Cells 0 /100 WBC (0-0); Reactive Lymphocytes Present; Total Cells Counted 100
[2016-07-27 06:48] VITALS: RESP 18
[2016-07-27] MEDS: APIXABAN 2.5 MG TABLET PO SCH (08:55)
[2016-07-27] MEDS: MAGNESIUM OXIDE 400 MG TAB PO SCH (08:55)
[2016-07-27] MEDS: DILTIAZEM ORAL 60 MG TAB PO SCH (08:55)
[2016-07-27] MEDS: METOPROLOL TARTRATE 25 MG TAB PO SCH (08:56)
[2016-07-27] MEDS: SPIRONOLACTONE 25 MG TAB PO SCH (08:56)
[2016-07-27] MEDS: predniSONE 10 MG TAB PO SCH (08:56)
[2016-07-27] MEDS ORDERED: FUROSEMIDE 40 MG TAB PO SCH (09:00)
[2016-07-27 09:03] VITALS: TEMP 97.2
--- NOTE | 2016-07-27 11:02 | PN ---
DATE OF SERVICE: 07/26/2016 Mrs. Mcmullen is an 85-year-old female seen today on 07/26/2016. This patient is admitted to the hospital with complaints of shortness of breath, CHF and atrial fibrillation. Her heart rate is still in the range of 130. We are increasing the dose of the Cardizem. Blood pressure 108/63. She denies any chest pain. She is feeling much better. Physical examination reveals an 85-year-old female who is alert, oriented, does not appear to be in acute distress. Neck is supple. No JVD. HEART: S1 and S2 heard, irregular heart sounds. Lungs appear to be clear. EXTREMITIES: Show resolved edema. FINAL IMPRESSION: 1. Atrial fibrillation with rapid ventricular response. 2. Heart failure with baseline diastolic dysfunction. 3. Rheumatoid arthritis. 4. Anemia. PLAN: Continue current medical therapy increase activity, increase the dose of Cardizem. Possible discharge within the next 24 hours.
--- NOTE | 2016-07-27 11:38 | PN ---
DATE OF SERVICE: 07/26/2016 This 85-year-old woman was admitted with atrial fibrillation with rapid ventricular rate, has been closely monitored. The patient also has CHF. The Cardizem dose was increased by Cardiology. No chest pain, no palpitations. No fever. On exam, alert and oriented x3. Pulse 103, blood pressure 113/74, respirations 16, temperature is normal, pulse ox 90% on room air. HEENT: Conjunctivae normal. NECK: No jugular venous distention. CARDIOVASCULAR: S1 and S2, muffled. RESPIRATORY: Breath sounds diminished at the bases. A few scattered rhonchi. No crackles. ABDOMEN: Soft, nontender. LEGS: No edema, no swelling. NERVOUS SYSTEM: No focal deficits. LABS: WBC 4.8, hemoglobin 9.9. Other labs are noted. ASSESSMENT: 1. Atrial fibrillation with rapid ventricular rate. 2. Congestive heart failure acute exacerbation with acute on chronic diastolic dysfunction, ejection fraction 50% to 55%. 3. History of rheumatoid arthritis. 4. History of atrial fibrillation. 5. History of degenerative joint disease. 6. History of osteoporosis. 7. Right shoulder surgery. 8. Anemia, normocytic anemia of chronic disease. 9. Increased creatinine with mild acute renal failure, possibly secondary to prerenal factors. 10. Increased total bilirubin. 11. Increased AST, improved. 12. Increased blood sugar. 13. FULL CODE. RECOMMENDATIONS AND DISCUSSION: I recommend to continue the current medications, continue monitoring and symptomatic treatment. Otherwise at this time I would recommend to follow the patient closely and continue to monitor. Follow closely with Cardiology. Guarded prognosis because of multiple complex medical issues. Further recommendations to follow.
[2016-07-27 14:29] VITALS: BP 119/76; PULSE 97
--- NOTE | 2016-07-27 15:27 | P.PN ---
Subjective Principal diagnosis: Congestive heart failure and atrial fibrillation 85-year-old female who follows regularly with Dr. Cecile Rodas in the office. She has a history of paroxysmal atrial fibrillation. She presented to the hospital with symptoms of exertional dyspnea as well as a positive orthopnea bilateral peripheral edema. She had gained a significant amount of weight prior to coming to the hospital. She was seen in consultation and initiated on IV Lasix therapy. She had diuresed well on IV Lasix. Feeling significantly better today. She has had a known cardiomyopathy in the past and for this reason we will discontinue the by mouth Cardizem and increase her dose of beta linda. From cardiology's perspective she may be able to be discharged once cleared by the primary. We will make her a follow-up appointment to see Dr. TIA Rodas in the office post discharge. She is on Eliquis 2 mg by mouth twice a day for anticoagulation. She is also currently on Lasix 40 mg by mouth daily. Objective - Vital Signs Vital signs: Vital Signs Temp 97.2 F L 07/27/16 08:00 Pulse 97 07/27/16 12:00 Resp 18 07/27/16 04:00 BP 119/76 07/27/16 12:00 Pulse Ox 96 07/27/16 12:00 Intake & Output 07/26/16 07/27/16 07/27/16 18:59 06:59 18:59 Intake Total 1140 490 400 Output Total 400 Balance 1140 490 0 Weight 75.3 kg Intake: IV 10 Sodium Chloride 0.9% 1, 10 000 ml @ 20 mls/hr IV . Q24H [facility] Rx#:[id number] Oral 1140 480 400 Output: Urine 400 Other: Voiding Method Toilet # Voids 2 1 - Exam PHYSICAL EXAMINATION: HEENT: Head is atraumatic, normocephalic. Pupils equal, round. Neck is supple. There is no elevated jugular venous pressure. HEART EXAMINATION: Heart S1, S2 irregularly irregular . No murmur or gallop heard. CHEST EXAMINATION: Lungs are clear to auscultation and precussion. No chest wall tenderness is noted on palpation or with deep breathing. ABDOMEN: Soft, nontender. Bowel sounds are heard. No organomegaly noted. EXTREMITIES: 2+ peripheral pulses with trace evidence of peripheral edema and no calf tenderness noted. NEUROLOGIC patient is awake, alert and oriented -3. . - Labs CBC & Chem 7: 07/27/16 05:38 07/27/16 05:36 Labs: Abnormal Lab Results - Last 24 Hours (Table) 07/27/16 07/27/16 Range/Units 05:36 05:38 RBC 3.44 L (3.80-5.40) m/uL Hgb 9.9 L (11.4-16.0) gm/dL Hct 31.3 L (34.0-46.0) % RDW 18.7 H (11.5-15.5) % BUN 26 H (7-17) mg/dL Assessment and Plan (1) Chronic a-fib Status: Acute (2) Diastolic CHF, acute on chronic Status: Acute (3) Rheumatoid arthritis Status: Acute (4) Anemia Status: Acute Plan: From cardiology's perspective, we'll discontinue the by mouth Cardizem and increase the dose of beta linda. She may be able to be discharged home from our perspective to follow-up with Dr. Cecile Rodas in the office post discharge. DNP note has been reviewed, I agree with a documented findings and plan of care. Patient was seen and examined.
[2016-07-27] MEDS ORDERED: METOPROLOL TARTRATE 25 MG TAB PO SCH (21:00)
--- NOTE | 2016-07-29 18:21 | DS ---
DATE OF ADMISSION: 07/22/2016 DATE OF DISCHARGE: 07/27/2016 FINAL DIAGNOSES: 1. Atrial fibrillation with rapid ventricular rate. 2. Congestive heart failure, acute exacerbation, with acute on chronic diastolic dysfunction, ejection fraction 50% to 55%. 3. History of rheumatoid arthritis. 4. History of atrial fibrillation. 5. History of degenerative joint disease. 6. History of osteoporosis. 7. Right shoulder surgery history. 8. Anemia, normocytic; anemia of chronic disease. 9. Increased creatinine with mild acute renal failure possibly, secondary to prerenal factors. 10. Increased total bilirubin. 11. Increased AST, improved. 12. Increased random blood sugar. 13. FULL CODE. DISCHARGE DISPOSITION: The patient will be discharged in stable condition with guarded prognosis. HISTORY OF PRESENT ILLNESS: This 86-year-old woman with a past medical history of multiple medical problems was admitted with atrial fibrillation with fast ventricular rate. Patient also had CHF. The patient was treated symptomatically and improved significantly. Cardiology saw the patient. Medications were adjusted. On exam, vitals are stable. CARDIOVASCULAR SYSTEM: S1, S2 muffled. ABDOMEN: Soft. NERVOUS SYSTEM: No focal deficit. DISCHARGE ADVICE AND MEDICATIONS: 1. Discharge diet is cardiac. 2. Activity limited until followup. 3. Follow up with Dr. Evans in 2 to 3 days. 4. Follow up with Cardiology as recommended. 5. Eliquis 2.5 mg p.o. b.i.d. 6. Cardizem 60 mg p.o. t.i.d. 7. Colace 100 mg p.o. daily. 8. Lasix 40 mg p.o. daily. 9. Magnesium oxide 250 mg p.o. daily. 10. Lopressor 25 mg t.i.d. 11. Omeprazole 20 mg p.o. daily. 12. Aldactone 12.5 mg p.o. daily.
== END 2016-07-27 15:41 | disposition home or self-care (01) | DRG 308 ==
LOC: EC 17:44 → 6SEL 21:35
PROVIDERS: ADMIT Hospitalist; ATTEND Hospitalist
DX: I48.0 Paroxysmal atrial fibrillation (principal); I50.33 Acute on chronic diastolic (congestive) heart failure; N17.9 Acute kidney failure, unspecified; I42.9 Cardiomyopathy, unspecified; D63.8 Anemia in other chronic diseases classified elsewhere; I07.1 Rheumatic tricuspid insufficiency; M06.9 Rheumatoid arthritis, unspecified; M19.91 Primary osteoarthritis, unspecified site; M81.0 Age-related osteoporosis without current pathological fracture; Z96.611 Presence of right artificial shoulder joint; Z91.040 Latex allergy status; Z88.2 Allergy status to sulfonamides; Z90.710 Acquired absence of both cervix and uterus; Z79.01 Long term (current) use of anticoagulants; Z79.899 Other long term (current) drug therapy
CPT/HCPCS: 36415; 71020; 80053; 82550; 82553; 83735; 83880; 84443; 84484; 85025; 85610; 85730; 93005; 93306

== ENCOUNTER 2016-10-31 14:29 | Emergency (ER) | payer MEDICARE, BC ==
[2016-10-31 15:17] LABS: Anisocytosis Slight; Basophils % (A) 1 %; CH 30.2; CHCM 33.9; Eosinophils % (A) 0 %; HCT 37.2 % (34.0-46.0); HDW 3.08; HGB 12.2 gm/dL (11.4-16.0); Luc # (Auto) 0.09; Luc % (Auto) 1; Lymphocytes # (A) 1.8 k/uL (1.0-4.8); Lymphocytes % (A) 27 %; MCH 29.3 pg (25.0-35.0); MCHC 32.9 g/dL (31.0-37.0); MCV 89.3 fL (80.0-100.0); Mean Platelet Volume 8.5; Monocytes # (A) 0.8 k/uL (0-1.0); Monocytes % (A) 11 %; Neutrophils # (A) 4.1 k/uL (1.3-7.7); Neutrophils % (A) 60 %; RBC 4.17 m/uL (3.80-5.40); RDW 17.8 % (11.5-15.5); WBC 6.9 k/uL (3.8-10.6); WBC (Perox) 6.79
--- NOTE | 2016-10-31 15:19 | ED ---
General Adult HPI - General Source: patient, RN notes reviewed Mode of arrival: wheelchair Limitations: no limitations <Ector Frazier - Last Filed: 10/31/16 16:44> <Jeff Epps - Last Filed: 10/31/16 17:04> - General Chief complaint: Shortness of Breath Stated complaint: sob Time Seen by Provider: 10/31/16 14:30 - History of Present Illness Initial comments: This is an 86-year-old female presents to the emergency room who comes in because she's been dizzy over the last few days. Patient states the dizziness is worse with movement of the head and is better if she keeps her head still. Patient says she has a very mild headache nothing significant. Patient states she has a history of atrial fibrillation and she is on a blood thinner for that. Patient denies any palpitations patient denies any chest pain patient states she has noted she is a little bit more short of breath than normal. Patient states she has no underlying breathing problems that she knows of. Patient denies any recent fever chills or cough. Patient denies any numbness or weakness. Patient denies abdominal pain patient denies nausea vomiting diarrhea. (Ector Frazier) - Related Data Home Medications Medication Instructions Recorded Confirmed Apixaban [Eliquis] 2.5 mg PO BID 02/24/16 10/31/16 Furosemide [Lasix] 20 mg PO DAILY 02/24/16 10/31/16 Omeprazole 20 mg PO DAILY 02/24/16 10/31/16 Spironolactone [Aldactone] 12.5 mg PO DAILY 02/24/16 10/31/16 Alendronate Sodium [Fosamax] 70 mg PO WE 10/31/16 10/31/16 Amiodarone [Cordarone] 200 mg PO DAILY 10/31/16 10/31/16 Diltiazem Oral [Cardizem Oral] 60 mg PO TID 10/31/16 10/31/16 Leflunomide 10 mg PO DAILY 10/31/16 10/31/16 Metoprolol Tartrate [Lopressor] 50 mg PO BID 10/31/16 10/31/16 predniSONE 2.5 mg PO DAILY 10/31/16 10/31/16 Previous Rx's Medication Instructions Recorded Meclizine [Antivert] 25 mg PO TID #20 tab 10/31/16 Allergies Allergy/AdvReac Type Severity Reaction Status Date / Time latex Allergy TURNS RED, Verified 10/31/16 15:08 OCC HIVES Sulfa (Sulfonamide Allergy Rash/Hives Verified 10/31/16 15:08 Antibiotics) Review of Systems ROS Other: All systems not noted in ROS Statement are negative. <Ector Frazier - Last Filed: 10/31/16 16:44> ROS Other: All systems not noted in ROS Statement are negative. <Jeff Epps - Last Filed: 10/31/16 17:04> ROS Statement: Those systems with pertinent positive or pertinent negative responses have been documented in the HPI. Past Medical History Past Medical History: Atrial Fibrillation, Heart Failure, Osteoarthritis (OA), Rheumatoid Arthritis (RA) Additional Past Medical History / Comment(s): osteoporosis History of Any Multi-Drug Resistant Organisms: None Reported Past Surgical History: Hysterectomy, Orthopedic Surgery Additional Past Surgical History / Comment(s): right shoulder sx, right knee arthroscopy, cardioversion Past Anesthesia/Blood Transfusion Reactions: No Reported Reaction Past Psychological History: No Psychological Hx Reported Smoking Status: Never smoker Past Alcohol Use History: None Reported Past Drug Use History: None Reported - Past Family History Mother Sister(s) Family Medical History: Cancer Brother(s) Family Medical History: Cancer Mother Family Medical History: Cancer Additional Family Medical History / Comment(s): stomach CA <Ector Frazier - Last Filed: 10/31/16 16:44> General Exam Limitations: no limitations <cEtor Frazier - Last Filed: 10/31/16 16:44> <Jeff Epps - Last Filed: 10/31/16 17:04> - General Exam Comments Initial Comments: GENERAL: Patient is well-developed and well-nourished. Patient is nontoxic and well- hydrated and is in no acute distress. ENT: Neck is soft and supple. No significant lymphadenopathy is noted. Oropharynx is clear. Moist mucous membranes. Neck has full range of motion without eliciting any pain. EYES: The sclera were anicteric and conjunctiva were pink and moist. Extraocular movements were intact and pupils were equal round and reactive to light. Eyelids were unremarkable. PULMONARY: Unlabored respirations. Good breath sounds bilaterally. No audible rales rhonchi or wheezing was noted. CARDIOVASCULAR: There is a regular rate and rhythm without any murmurs gallops or rubs. ABDOMEN: Soft and nontender with normal bowel sounds. No palpable organomegaly was noted. There is no palpable pulsatile mass. SKIN: Skin is clear with no lesions or rashes and otherwise unremarkable. NEUROLOGIC: Patient is alert and oriented x3. Cranial nerves II through XII are grossly intact. Motor and sensory are also intact. Normal speech, volume and content. Symmetrical smile. MUSCULOSKELETAL: Normal extremities with adequate strength and full range of motion. No lower extremity swelling or edema. No calf tenderness. LYMPHATICS: No significant lymphadenopathy is noted PSYCHIATRIC: Normal psychiatric evaluation. Normal interpersonal interactions appears functionally intact in deals appropriately with others. No signs of depression. No signs of anxiety. No delusions. No hallucinations. (Ector Frazier) Medical Decision Making - Lab Data Result diagrams: 10/31/16 14:49 10/31/16 14:49 <Ector Frazier - Last Filed: 10/31/16 16:44> - Lab Data Result diagrams: 10/31/16 14:49 10/31/16 14:49 <Jeff Epps - Last Filed: 10/31/16 17:04> - Medical Decision Making EKG shows sinus bradycardia 57 bpm HI interval 180 QRS is 82 QT interval is 50 70 QTC is 492. Patient's EKG shows no ST segment elevation or depression or T wave abnormalities are noted. CAT scan of the brain shows no acute abnormality I will begin to discuss the results with the patient and she was in agreement she believes this was vertigo as well. Patient will return if there is any new or worsening symptoms. (Ector Frazier) - Lab Data Lab Results 10/31/16 10/31/16 10/31/16 Range/Units 14:49 14:49 14:49 WBC 6.9 (3.8-10.6) k/uL RBC 4.17 (3.80-5.40) m/uL Hgb 12.2 (11.4-16.0) gm/dL Hct 37.2 (34.0-46.0) % MCV 89.3 (80.0-100.0) fL MCH 29.3 (25.0-35.0) pg MCHC 32.9 (31.0-37.0) g/dL RDW 17.8 H (11.5-15.5) % Plt Count 166 (150-450) k/uL Neutrophils % 60 % Lymphocytes % 27 % Monocytes % 11 % Eosinophils % 0 % Basophils % 1 % Neutrophils # 4.1 (1.3-7.7) k/uL Lymphocytes # 1.8 (1.0-4.8) k/uL Monocytes # 0.8 (0-1.0) k/uL Eosinophils # 0.0 (0-0.7) k/uL Basophils # 0.0 (0-0.2) k/uL Anisocytosis Slight PT (9.0-12.0) sec INR (<1.2) APTT (22.0-30.0) sec Sodium 141 (137-145) mmol/L Potassium 4.1 (3.5-5.1) mmol/L Chloride 106 (98-107) mmol/L Carbon Dioxide 20 L (22-30) mmol/L Anion Gap 15 mmol/L BUN 24 H (7-17) mg/dL Creatinine 1.10 H (0.52-1.04) mg/dL Est GFR (MDRD) Af Amer 57 (>60 ml/min/1.73 sqM) Est GFR (MDRD) Non-Af 47 (>60 ml/min/1.73 sqM) Glucose 102 H (74-99) mg/dL Calcium 9.5 (8.4-10.2) mg/dL Magnesium 2.3 (1.6-2.3) mg/dL Total Bilirubin 1.1 (0.2-1.3) mg/dL AST 24 (14-36) U/L ALT 28 (9-52) U/L Alkaline Phosphatase 82 (38-126) U/L Total Creatine Kinase 42 (30-135) U/L CK-MB (CK-2) 0.6 (0.0-2.4) ng/mL CK-MB (CK-2) Rel Index 1.4 Troponin I <0.012 (0.000-0.034) ng/mL NT-Pro-B Natriuret Pep pg/mL Total Protein 7.5 (6.3-8.2) g/dL Albumin 4.5 (3.5-5.0) g/dL 10/31/16 10/31/16 Range/Units 14:49 14:49 WBC (3.8-10.6) k/uL RBC (3.80-5.40) m/uL Hgb (11.4-16.0) gm/dL Hct (34.0-46.0) % MCV (80.0-100.0) fL MCH (25.0-35.0) pg MCHC (31.0-37.0) g/dL RDW (11.5-15.5) % Plt Count (150-450) k/uL Neutrophils % % Lymphocytes % % Monocytes % % Eosinophils % % Basophils % % Neutrophils # (1.3-7.7) k/uL Lymphocytes # (1.0-4.8) k/uL Monocytes # (0-1.0) k/uL Eosinophils # (0-0.7) k/uL Basophils # (0-0.2) k/uL Anisocytosis PT 15.0 H (9.0-12.0) sec INR 1.5 H (<1.2) APTT 28.4 (22.0-30.0) sec Sodium (137-145) mmol/L Potassium (3.5-5.1) mmol/L Chloride (98-107) mmol/L Carbon Dioxide (22-30) mmol/L Anion Gap mmol/L BUN (7-17) mg/dL Creatinine (0.52-1.04) mg/dL Est GFR (MDRD) Af Amer (>60 ml/min/1.73 sqM) Est GFR (MDRD) Non-Af (>60 ml/min/1.73 sqM) Glucose (74-99) mg/dL Calcium (8.4-10.2) mg/dL Magnesium (1.6-2.3) mg/dL Total Bilirubin (0.2-1.3) mg/dL AST (14-36) U/L ALT (9-52) U/L Alkaline Phosphatase (38-126) U/L Total Creatine Kinase (30-135) U/L CK-MB (CK-2) (0.0-2.4) ng/mL CK-MB (CK-2) Rel Index Troponin I (0.000-0.034) ng/mL NT-Pro-B Natriuret Pep 986 pg/mL Total Protein (6.3-8.2) g/dL Albumin (3.5-5.0) g/dL Disposition Time of Disposition: 16:43 <Ector Frazier - Last Filed: 10/31/16 16:44> <Jeff Epps - Last Filed: 10/31/16 17:04> Clinical Impression: Vertigo Disposition: HOME SELF-CARE Condition: Good Instructions: Vertigo (ED) Prescriptions: Meclizine [Antivert] 25 mg PO TID #20 tab Referrals: Jeff Evans MD [Primary Care Provider] - 1-2 days
[2016-10-31 15:27] LABS: Calcium 9.5 mg/dL (8.4-10.2); INR 1.5 (<1.2); Magnesium 2.3 mg/dL (1.6-2.3); Partial Thromboplastin Time 28.4 sec (22.0-30.0); Potassium 4.1 mmol/L (3.5-5.1); Total Bilirubin 1.1 mg/dL (0.2-1.3); Total Protein 7.5 g/dL (6.3-8.2)
--- NOTE | 2016-10-31 15:31 | XR ---
EXAMINATION TYPE: XR chest 2V DATE OF EXAM: 10/31/2016 COMPARISON: 07/22/2016 HISTORY: Difficulty breathing TECHNIQUE: Frontal and lateral views of the chest are obtained. FINDINGS: Heart and mediastinum are normal. Lungs are clear of consolidation. There is no pleural ef fusion. Bony thorax is intact. There are chest leads. IMPRESSION: No active cardiopulmonary disease. Heart appears smaller than old exam.
[2016-10-31 15:37] VITALS: RESP 18
[2016-10-31 15:37] LABS: Creatine Kinase 42 U/L (30-135)
[2016-10-31 15:50] LABS: Creatine Kinase MB 0.6 ng/mL (0.0-2.4); Troponin I <0.012 ng/mL (0.000-0.034)
[2016-10-31] MEDS ORDERED: MECLIZINE 25 MG TAB PO STA (15:54)
--- NOTE | 2016-10-31 16:27 | CT ---
EXAMINATION TYPE: CT brain wo con DATE OF EXAM: 10/31/2016 COMPARISON: NONE HISTORY: Patient complains of dizziness and light headed feeling. CT DLP: 799.9 mGycm Automated exposure control for dose reduction was used. FINDINGS: Ventricles have normal size. There is no mass effect nor midline shift. There is no sign of intracran ial hemorrhage. There is mild hypodensity in the white matter. The calvarium is intact. IMPRESSION: MILD CHRONIC WHITE MATTER CHANGES. NO ACUTE INTRACRANIAL ABNORMALITY.
[2016-10-31 16:40] VITALS: BP 143/65
[2016-10-31 17:01] VITALS: PULSE 56
[2016-10-31 17:08] VITALS: TEMP 97.6
== END 2016-10-31 17:08 | disposition home or self-care (01) ==
LOC: EC 14:29
DX: R42 Dizziness and giddiness (principal); R06.02 Shortness of breath; R00.1 Bradycardia, unspecified; I48.91 Unspecified atrial fibrillation; I50.9 Heart failure, unspecified; M06.9 Rheumatoid arthritis, unspecified; M81.0 Age-related osteoporosis without current pathological fracture; M19.90 Unspecified osteoarthritis, unspecified site; Z88.2 Allergy status to sulfonamides; Z91.040 Latex allergy status; Z79.01 Long term (current) use of anticoagulants; Z79.899 Other long term (current) drug therapy
CPT/HCPCS: 36415; 70450; 71020; 80053; 82550; 82553; 83735; 83880; 84484; 85025; 85610; 85730; 99285